=== PATIENT | male | born 1980 | race Caucasian/White ===

== ENCOUNTER → 2024-04-24 15:42 | Outpatient (REF) | payer OTHER, SELFPAY | LOC: RAD 15:42 | PROVIDERS: ATTENDING PHYSICIAN Student in an Organized Health Care Education/Training Program; FAMILY PHYSICIAN Family Medicine; OTHER PHYSICIAN Orthopaedic Surgery; OTHER PHYSICIAN Podiatrist Foot & Ankle Surgery | DX: M19.079 Primary osteoarthritis, unspecified ankle and foot (principal) | CPT/HCPCS: 73700 ==

== ENCOUNTER 2024-08-31 13:54 | Emergency (ER) | payer OTHER, SELFPAY ==
--- NOTE | 2024-08-31 14:05 | ED.GENMED ---
ED Provider Triage
<Fabian Alvarenga Jr., PA-C - Last Filed: 08/31/24 14:08>
-
Patient seen by provider in Triage?: Seen in Triage
Attestation: A medical screening examination has been initiated by a qualified medical provider. Based on the assessment performed at this time, it has been determined that an emergent medical condition may exist and the patient has been informed
that further medical evaluation and possible additional diagnostic testing may be needed.
HPI: 43 y/o Male presenting with concerns of right lower extremity cramping and swelling. Recently had ankle replacement 3 weeks ago. Increasing cramping discomfort. Sent in for ultrasound to rule out DVT. Denies chest pain shortness of breath
or additional symptoms otherwise.
GENERAL: Alert , in no apparent distress
EYE: No visual abnormalities.
NECK: Trachea midline
ENT: No visible abnormalities.
LUNGS: No acute respiratory distress
NEUROLOGICAL: Alert and oriented
SKIN: Skin intact. No visible changes.
MUSCULOSKELETAL: Moving extremities normally
PSYCH: Normal and appropriate interaction.
This is a medical evaluation conducted in person to initiate diagnostic evaluation and provide initial therapeutics. Please see further documentation by the treating clinician.
History of Present Illness
<Fabian Alvarenga Jr., PA-C - Last Filed: 08/31/24 14:08>
General
Chief Complaint: DVT/Possible Blood Clot
Time Seen by Provider: 08/31/24 14:28
<Lazaro Chris MD - Last Filed: 08/31/24 15:37>
General
Source: patient
Exam Limitations: none
History of Present Illness
History of Present Illness:
23-year-old male history of right ankle replacement 3 weeks ago. Getting cramping in the calf. No chest pain shortness of breath fever or other complaints.
Past History
<Lazaro Chris MD - Last Filed: 08/31/24 15:37>
Past History
ED Past Surgical History: Orthopedic
Review of Systems
<Lazaro Chris MD - Last Filed: 08/31/24 15:37>
Review of Systems
All Other Systems: Not applicable
Constitutional: Denies fever
Respiratory: Denies trouble breathing
Cardiac: Denies chest pain
Phy Exam
<Lazaro Chris MD - Last Filed: 08/31/24 15:37>
Physical Exam
Physical Exam:
General: Nontoxic appearing in no distress
Skin: Warm and dry, no rash
Neuro: Alert, nontoxic, grossly nonfocal
Psychiatric: Good eye contact and appropriate
Musculoskeletal: Boot on the right leg dressing covering the incisions. Boot was removed. Superficial dressings removed. Calf is without swelling erythema warmth. No cord. No tenderness. Superficial dressings were left over the wound however
there is no sign of secondary infection around the wound. Good distal pulses and color.
Course
<Fabian Alvarenga Jr., PA-C - Last Filed: 08/31/24 14:08>
Orders/Labs/Results
Orders:
Orders
08/31/24 14:06
Venous Doppler Lwr Ext Rt [US Periph Venous LOWER Ext RT] Urgent
Comment:
Reason For Exam: leg cramping
Vital Signs
Initial and Last Documented VS:
Initial Vital Signs
Temp Pulse Resp BP Pulse Ox
98.1 F 97 16 170/104 99
08/31/24 14:06 08/31/24 14:06 08/31/24 14:08/31/24 14:06 08/31/24 14:06
Last Documented Vital Signs
Temp Pulse Resp BP Pulse Ox
98.1 F 97 16 170/104 99
08/31/24 14:06 08/31/24 14:06 08/31/24 14:06 08/31/24 14:06 08/31/24 14:06
<Lazaro Chris MD - Last Filed: 08/31/24 15:37>
Orders/Labs/Results
Orders:
Orders
08/31/24 14:06
Venous Doppler Lwr Ext Rt [US Periph Venous LOWER Ext RT] Urgent
Comment:
Reason For Exam: leg cramping
Vital Signs
Initial and Last Documented VS:
Initial Vital Signs
Temp Pulse Resp BP Pulse Ox
98.1 F 97 16 170/104 99
08/31/24 14:06 08/31/24 14:06 08/31/24 14:06 08/31/24 14:06 08/31/24 14:06
Last Documented Vital Signs
Temp Pulse Resp BP Pulse Ox
98.1 F 97 16 170/104 99
08/31/24 14:06 08/31/24 14:06 08/31/24 14:06 08/31/24 14:06 08/31/24 14:06
<Lazaro Chris MD - Last Filed: 08/31/24 15:37>
MDM/Problems Addressed
Differential Diagnosis Includes:
No evidence of DVT. No evidence of infectious issue. No vascular issue clinically. Reassurance and follow-up with orthopedics
<Lazaro Chris MD - Last Filed: 08/31/24 15:37>
*Radiology
Radiology exam reviewed: radiology read reviewed (Negative ultrasound)
*Critical Care Note
Total Time (30-74mins, 75-104mins- exclusive of procedures): Not Applicable
ED Attending Note
<Fabian Alvarenga Jr., PA-C - Last Filed: 08/31/24 14:08>
-
Portions of this chart may have been created with voice recognition software.� Occasional wrong word or��sound alike� substitutions may have occurred due to the inherent limitations of voice recognition software.
Discharge Plan
Departure
Patient Disposition: Home (Routine Discharge)
Date of Disposition: 08/31/24
Time of Disposition: 15:37
Patient with high blood pressure during this ER visit?: Yes
Discharge Problem:
Right calf pain, Recent ankle replacement
Instructions: BLOOD PRESSURE
Activity Restrictions/Additional Instructions:
See your orthopedist tomorrow
Recheck with increased pain swelling redness chest pain shortness of breath fever or any other concerning symptoms
Discharge Date and Time
Print Language: SLOVAK
[2024-08-31 14:06] VITALS: BP 170/104
[2024-08-31 15:43] VITALS: BP 151/98
== END 2024-08-31 15:59 | disposition home or self-care (01) ==
LOC: EMR 13:54
PROVIDERS: EMERGENCY PHYSICIAN Emergency Medicine
DX: M79.661 Pain in right lower leg (principal); R22.41 Localized swelling, mass and lump, right lower limb; Z96.661 Presence of right artificial ankle joint
CPT/HCPCS: 99284; 93971